=== PATIENT | male | born 1980 | race African-American/Black ===

== ENCOUNTER 2019-09-10 18:34 | Emergency (ER) | payer OTHER ==
[~2019-09-10] VITALS: Ht 152.4 cm; Wt 98.4 kg
[~2019-09-10 18:34] MED LIST: ALBUTEROL SULF8.5 GM INH; BACITRACIN15 GM TOPIC; BENTYL10 MG ORAL; IBUPROFEN600 MG ORAL; LEVAQUIN500 MG ORAL; NKM; NORCO 5-325 TA1 EACH ORAL; OMEPRAZOLE20 M3 ORAL; OMEPRAZOLE40 M1 ORAL; TRAMADOL HCL50 MG ORAL; ZANTAC150 MG ORAL
--- NOTE | 2019-09-10 18:41 | NUR ---
ED Nurse Note: Pt walked in ED c/o headache and anxiety since this morning. Denies n/v/changes in vision. Pt aox4, no distress noted at this time. Respirations even and unlabored. VSS.
[2019-09-10 18:43] VITALS: BP 131/87
--- NOTE | 2019-09-10 19:04 | NUR ---
ED Nurse Note: ERMD at bedside.
--- NOTE | 2019-09-10 19:07 | NUR ---
HAND-OFF: Report given to RICHIE Crockett.
--- NOTE | 2019-09-10 19:46 | Emergency Room Report ---
History of Present Illness General Chief Complaint: Headache Source: Patient Present Illness HPI 39-year-old male presents to the emergency department complaining of 2 panic attacks occurring today. Patient reports 6 out of 10 severity persistent dull progressive headache. Patient states that twice he experienced shakiness, anxiousness, tightness in the chest, hot flash, palpitations and uncontrollable crying. Patient reports he is under extreme amounts of stress both at work and at home. Patient reports both episodes occurred while at work today. He denies nausea, vomiting, visual changes or photophobia. Denies hx of chronic migraines or frequent BUTTERFIELD's. Patient denies specific trauma or fall. 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 Patient denies taking medications regularly, new supplements, significant changes in weight or recent illness. Patient denies recent travel or calf pain. Patient denies swelling of the lower extremities. He states that he called his insurance in an attempt to get a psychiatric evaluation however he was instructed to go to the emergency department for medical evaluation. Patient denies SI/HI. Patient denies manic symptoms he denies delusions, illicit drug use, history of TBI or previous psychiatric hospitalizations. 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 He states he does not live alone. He denies access to firearms. He denies CP or palpitations at this time. Allergies: Coded Allergies: BANANA (Verified Allergy, Severe, 07/30/15) CEPHALEXIN (Verified Allergy, Severe, 07/30/15) Patient History Past Medical History: see triage record Past Surgical History: none Pertinent Family History: none Reviewed Nursing Documentation: PMH: Agreed; PSxH: Agreed Nursing Documentation-PMH Past Medical History: No History, Except For Hx Hypertension: Yes Hx Asthma: Yes Review of Systems All Other Systems: negative except mentioned in HPI Physical Exam Vital Signs Date Time Temp Pulse Resp B/P (MAP) Pulse Ox O2 Delivery O2 Flow Rate FiO2 09/10/19 18:37 98.6 69 18 131/87 (102) 99 Room Air Sp02 EP Interpretation: reviewed, normal General Appearance: no apparent distress, alert, GCS 15, non-toxic Head: normocephalic, atraumatic Eyes: bilateral eye normal inspection, bilateral eye PERRL ENT: hearing grossly normal, normal voice Neck: full range of motion Respiratory: chest non-tender, lungs clear, normal breath sounds, no respiratory distress, no wheezing, speaking full sentences Cardiovascular #1: regular rate, rhythm, no edema, normal capillary refill Cardiovascular #2: 2+ radial (R) Musculoskeletal: gait/station normal, normal range of motion, non-tender Neurologic: alert, oriented x3, responsive, motor strength/tone normal, sensory intact, normal gait, speech normal, grossly normal Psychiatric: judgement/insight normal, no suicidal/homicidal ideation, no delusions, depressed affect - Talks about stress with custody peters for his son , not being happy at work. Skin: no rash Lymphatic: no adenopathy Medical Decision Making PA Attestation Dr. Pulliam is my supervising Physician whom patient management has been discussed with. Diagnostic Impression: Primary Impression: Headache Qualified Codes: R51 - Headache Additional Impressions: Intermittent palpitations Stress at work Stress at home ER Course 39-year-old male presents to the emergency department complaining of 2 panic attacks occurring today. Patient reports 6 out of 10 severity persistent dull progressive headache. Patient states that twice he experienced shakiness, anxiousness, tightness in the chest, hot flash, palpitations and uncontrollable crying. Patient reports he is under extreme amounts of stress both at work and at home. Patient reports both episodes occurred while at work today. He denies nausea, vomiting, visual changes or photophobia. Denies hx of chronic migraines or frequent BUTTERFIELD's. Patient denies specific trauma or fall. 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 Patient denies taking medications regularly, new supplements, significant changes in weight or recent illness. Patient denies recent travel or calf pain. Patient denies swelling of the lower extremities. He states that he called his insurance in an attempt to get a psychiatric evaluation however he was instructed to go to the emergency department for medical evaluation. Patient denies SI/HI. Patient denies manic symptoms he denies delusions, illicit drug use, history of TBI or previous psychiatric hospitalizations. 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 He states he does not live alone. He denies access to firearms. He denies CP or palpitations at this time. Ddx considered but are not limited to anxiety, OR, PE, asthma, thyroid storm, hyperthyroid, EPS, depression, SI/HI, or drug side effect just to name a few. Vital signs: are WNL, pt. is afebrile H&PE are most consistent with anxiety attack--very low suspicion of cardiac etiology as patient has low risk factors, no personal or familiar cardiac history such as OR or sudden . ORDERS: -EKG: NSR [address] changes. ED INTERVENTIONS: -Tylenol PO Pt. is very weary about starting or taking medications and is requesting therapy /counseling. -I do not identify an emergent condition at this time. With current presentation , pt. is stable for close outpatient follow up and conservative treatment. D/ w pt. to return promptly to ED with worsening or new symptoms.- Pt. verbalizes' understanding and agreement with proposed treatment plan. Pt is given [facility] INFO for psychiatric eval and to seek therapy. DISCHARGE: At this time pt. is stable for d/c to home. Will provide printed patient care instructions, and any necessary prescriptions. Care plan and follow up instructions have been discussed with the patient prior to discharge. EKG Diagnostic Results EP Interpretation: Dr. Pulliam Rate: normal - 63 bpm Rhythm: NSR ST Segments: no acute changes ASA given to the pt in ED: No PA Scribe Text This Interpretation was scribed by LIANET Lay. Last Vital Signs Date Time Temp Pulse Resp B/P (MAP) Pulse Ox O2 Delivery O2 Flow Rate FiO2 09/10/19 19:41 98.6 09/10/19 18:43 72 18 131/87 99 Room Air Status: improved Disposition: HOME, SELF-CARE Condition: Stable Scripts Acetaminophen* (TYLENOL EXTRA STRENGTH*) 500 Mg Tablet 500 MG ORAL Q6H for Headache, #20 TAB 0 Refills Prov: Jeny Lay 09/10/19 Referrals: [facility] Departure Forms: Return to Work Return to Work Date: Sep 13, 2019 Other Restrictions: May return Sooner if Symptoms have resolved. Return to Full Activity: Sep 13, 2019 Patient Instructions: General Headache Without Cause, Panic Attacks, Easy-to- Read Additional Instructions: Take medications as directed. Follow up with a Mental Health Specialist/ Psychiatrist in 3 days, even if your symptoms have resolved. --Please review [facility] resource information provided Return sooner to ED if new symptoms occur, or current symptoms become worse. - Please note that this Emergency Department Report was dictated using PredictSpringrail detector car operator technology software, occasionally this can lead to erroneous entry secondary to interpretation by the dictation equipment. Jeny Lay Sep 10, 2019 19:46
[2019-09-10] MEDS ORDERED: TYLENOL EXTRA500 MG ORAL (20:05)
[2019-09-10 20:25] VITALS: BP 126/82
--- NOTE | 2019-09-10 20:25 | NUR ---
ER Nurse Note: Patient is cleared to be discharged per ERMD, pt is aox4, on room air, with stable vital signs. Pt was given dc and prescription instructions, pt was able to verbalize understanding. Referals given for follow up treatments. Pt id band removed . Pt is able to ambulate with steady gait. Pt took all belongings.
== END 2019-09-10 20:25 | disposition home or self-care (01) ==
LOC: EMR 19:00
DX: R51 Headache (principal); R00.2 Palpitations; F43.9 Reaction to severe stress, unspecified; Z88.8 Allergy status to other drugs, medicaments and biological substances; I10 Essential (primary) hypertension; Z91.018 Allergy to other foods
CPT/HCPCS: 93005; 99284

== ENCOUNTER 2019-12-04 08:08 | Emergency (ER) | payer OTHER ==
[~2019-12-04] VITALS: Ht 167.6 cm; Wt 99.8 kg
[~2019-12-04 08:08] MED LIST changes: +TYLENOL EXTRA500 MG ORAL
[2019-12-04 08:13] VITALS: BP 124/87
--- NOTE | 2019-12-04 08:20 | NUR ---
ED Nurse Note: Patient walked into ED on the left side of his abdomen for 2 days. patient reports having nausea and diarrhea, but denies vomiting. patient denies the pain is radiating to anywhere else. patient is alert awake x4 ambulatory, breathing unlabored and even, speaking in full sentences. patient on a hospital gown. Dr Ordoñez at bedside.
[2019-12-04] MEDS ORDERED: Mylanta II UD 30ml ORAL ONE (08:30)
[2019-12-04] MEDS ORDERED: Lidocaine 2% Visc 15ml soln ORAL ONE (08:30)
[2019-12-04] MEDS ORDERED: Dicyclomine HCl 10mg/5ml oral soln ORAL ONE (08:30)
--- NOTE | 2019-12-04 08:32 | Emergency Room Report ---
History of Present Illness General Chief Complaint: Abdominal Pain Source: Patient Present Illness HPI Patient 39-year-old male presents after increased left-sided abdominal pain for the past 2 days. He had intermittent episodes of pain. He reports having some increased loose stools. Prior history of appendix surgery. Denies any fever. Denies any bloody stools. Reports alcohol cessation approximately 2 years ago. States that he has not had any recent travel. He denies any weakness. Denies any worsening pain with ambulation. Pain is intermittent in nature. Allergies: Coded Allergies: BANANA (Verified Allergy, Severe, 07/30/15) CEPHALEXIN (Verified Allergy, Severe, 07/30/15) Patient History Reviewed Nursing Documentation: PMH: Agreed; PSxH: Agreed Nursing Documentation-PMH Past Medical History: No History, Except For Hx Hypertension: Yes Hx Asthma: Yes Hx Diabetes: Yes Review of Systems All Other Systems: negative except mentioned in HPI Physical Exam Vital Signs Date Time Temp Pulse Resp B/P (MAP) Pulse Ox O2 Delivery O2 Flow Rate FiO2 12/04/19 08:13 98.1 65 19 124/87 (99) 96 Room Air Sp02 EP Interpretation: reviewed, normal General Appearance: normal inspection, well appearing, no apparent distress, alert, GCS 15 Head: atraumatic ENT: normal ENT inspection, hearing grossly normal, normal voice Neck: normal inspection, full range of motion, supple, no bony tend Respiratory: normal inspection, lungs clear, normal breath sounds, no respiratory distress, no retraction, no wheezing Cardiovascular #1: regular rate, rhythm, no edema Gastrointestinal: normal inspection, normal bowel sounds, non tender, soft, no guarding, no hernia Genitourinary: no CVA tenderness Musculoskeletal: normal inspection, back normal, normal range of motion Neurologic: alert, motor strength/tone normal, termite exterminator helper III-XII nml as tested, oriented x3, responsive, speech normal, normal inspection Psychiatric: normal inspection, judgement/insight normal, mood/affect normal Medical Decision Making Diagnostic Impression: Primary Impression: Gastroenteritis Additional Impression: Nonspecific abdominal pain ER Course Patient presented for abdominal pain. Differential diagnoses included ischemic bowel, appendicitis, perforated viscus, abdominal aortic aneurysm, inferior myocardial infarction, viral gastroenteritis among others.Because patient's complexity imaging studies, and laboratory testing ordered. Laboratory testing showed . Electrolytes unremarkable Lipase was normal White blood count was normal Patient appears to be stable for close outpatient follow up. Patient given prescriptions for symptomatic management. Patient is advised to follow-up with a primary care physician for recheck. He is advised to return if he had any worsening condition or other concerns. He is advised that he may need to see 411 directory assistance operator for endoscopy or colonoscopy. Patient is advised to return if any worsening condition or if any changes in status that are concerning. This report is dictated with [employer] criminal legal assistant software which may occasionally lead to discrepancies related to use of this software. Labs Test 12/04/19 08:39 White Blood Count 6.7 K/UL (4.8-10.8) Red Blood Count 5.30 M/UL (4.70-6.10) Hemoglobin 14.8 G/DL (14.2-18.0) Hematocrit 42.4 % (42.0-52.0) Mean Corpuscular Volume 80 FL (80-99) Mean Corpuscular Hemoglobin 27.9 PG (27.0-31.0) Mean Corpuscular Hemoglobin Concent 34.8 G/DL (32.0-36.0) Red Cell Distribution Width 11.8 % (11.6-14.8) Platelet Count 280 K/UL (150-450) Mean Platelet Volume 5.8 FL (6.5-10.1) Neutrophils (%) (Auto) 60.6 % (45.0-75.0) Lymphocytes (%) (Auto) 30.8 % (20.0-45.0) Monocytes (%) (Auto) 5.5 % (1.0-10.0) Eosinophils (%) (Auto) 1.7 % (0.0-3.0) Basophils (%) (Auto) 1.4 % (0.0-2.0) Sodium Level 140 MMOL/L (136-145) Potassium Level 4.3 MMOL/L (3.5-5.1) Chloride Level 105 MMOL/L (98-107) Carbon Dioxide Level 29 MMOL/L (21-32) Anion Gap 6 mmol/L (5-15) Blood Urea Nitrogen 13 mg/dL (7-18) Creatinine 1.2 MG/DL (0.55-1.30) Estimat Glomerular Filtration Rate > 60 mL/min (>60) Glucose Level 114 MG/DL (74-106) Calcium Level 9.7 MG/DL (8.5-10.1) Total Bilirubin 0.3 MG/DL (0.2-1.0) Aspartate Amino Transf (AST/SGOT) 22 U/L (15-37) Alanine Aminotransferase (ALT/SGPT) 34 U/L (12-78) Alkaline Phosphatase 77 U/L (46-116) Total Protein 8.3 G/DL (6.4-8.2) Albumin 4.0 G/DL (3.4-5.0) Globulin 4.3 g/dL Albumin/Globulin Ratio 0.9 (1.0-2.7) Lipase 188 U/L (73-393) Last Vital Signs Date Time Temp Pulse Resp B/P (MAP) Pulse Ox O2 Delivery O2 Flow Rate FiO2 12/04/19 08:19 65 19 Room Air 12/04/19 08:13 98.1 124/87 96 Status: improved Disposition: HOME, SELF-CARE Condition: Stable Scripts Ondansetron Odt* (ZOFRAN ODT*) 4 Mg Tab.rapdis 4 MG BC EVERY 8 HOURS PRN for Nausea & Vomiting, #10 TAB 0 Refills Prov: Cedrick Ordoñez MD 12/04/19 Dicyclomine Hcl* (DICYCLOMINE HCL*) 10 Mg Capsule 10 MG ORAL QID, #20 CAP Prov: Cedrick Ordoñez MD 12/04/19 Cedrick Ordoñez MD Dec 04, 2019 08:32
[2019-12-04 09:17] LABS: BASOPHILS % (AUTO) 1.4 % (0.0-2.0); EOSINOPHILS % (AUTO) 1.7 % (0.0-3.0); HEMATOCRIT 42.4 % (42.0-52.0); HEMOGLOBIN 14.8 G/DL (14.2-18.0); LYMPHOCYTES % (AUTO) 30.8 % (20.0-45.0); MEAN CORPUSCULAR VOLUME 80 FL (80-99); MONOCYTES % (AUTO) 5.5 % (1.0-10.0); NEUTROPHILS % (AUTO) 60.6 % (45.0-75.0); PLATELET COUNT 280 K/UL (150-450); RED CELL DISTRIBUTION WIDTH 11.8 % (11.6-14.8); WHITE BLOOD COUNT 6.7 K/UL (4.8-10.8)
[2019-12-04 09:20] LABS: ANION GAP 6 mmol/L (5-15); BLOOD UREA NITROGEN 13 mg/dL (7-18); CALCIUM 9.7 MG/DL (8.5-10.1); CARBON DIOXIDE 29 MMOL/L (21-32); CHLORIDE 105 MMOL/L (98-107); CREATININE 1.2 MG/DL (0.55-1.30); POTASSIUM 4.3 MMOL/L (3.5-5.1); SODIUM 140 MMOL/L (136-145)
[2019-12-04 09:25] LABS: ALANINE AMINOTRANSFERASE 34 U/L (12-78); ALBUMIN/GLOBULIN RATIO 0.9 (1.0-2.7); ALKALINE PHOSPHATASE 77 U/L (46-116); ASPARTATE AMINO TRANSFERASE 22 U/L (15-37); BILIRUBIN,TOTAL 0.3 MG/DL (0.2-1.0)
[2019-12-04] MEDS ORDERED: DICYCLOMINE HCL10 MG ORAL (09:48)
[2019-12-04] MEDS ORDERED: ONDANSETRON ODT4 MG BC (09:48)
[2019-12-04 10:05] VITALS: BP 124/87
--- NOTE | 2019-12-04 10:06 | NUR ---
ER DISCHARGE NOTE: Patient is cleared to be discharged per ERMD DR ORTEGA, pt is aox4, on room air, with stable vital signs. pt was given dc and prescription instructions, pt was able to verbalize understanding, pt id band and iv site removed without complications. pt is able to ambulate with steady gait. pt took all belongings.
== END 2019-12-04 10:06 | disposition home or self-care (01) ==
LOC: EMR 08:40
DX: K52.9 Noninfective gastroenteritis and colitis, unspecified (principal); R10.9 Unspecified abdominal pain; I10 Essential (primary) hypertension; J45.909 Unspecified asthma, uncomplicated; E11.9 Type 2 diabetes mellitus without complications; Z88.1 Allergy status to other antibiotic agents; Z91.018 Allergy to other foods
CPT/HCPCS: 36415; 80053; 83690; 85025; 96361; 96374; 99284; J2405; J7030